=== PATIENT | female | born 1950 | race Caucasian/White ===

== ENCOUNTER → 2018-05-14 | Outpatient (CLI) | payer MEDICARE | END | disposition home or self-care (01) | LOC: CFH 10:58 | PROVIDERS: ATTEND Obstetrics & Gynecology | DX: Z12.31 Encounter for screening mammogram for malignant neoplasm of breast (principal) | CPT/HCPCS: 77067 ==

== ENCOUNTER → 2019-02-17 | Outpatient (CLI) | payer MEDICARE | END | disposition home or self-care (01) | LOC: CFH 09:30 | PROVIDERS: ATTEND Family Medicine | DX: Z13.820 Encounter for screening for osteoporosis (principal); Z78.0 Asymptomatic menopausal state | CPT/HCPCS: 77080 ==

== ENCOUNTER → 2019-03-12 | Outpatient (CLI) | payer MEDICARE | END | disposition home or self-care (01) | LOC: CVU 15:21 | PROVIDERS: ATTEND Internal Medicine Cardiovascular Disease | DX: I08.3 Combined rheumatic disorders of mitral, aortic and tricuspid valves (principal); I48.91 Unspecified atrial fibrillation; I10 Essential (primary) hypertension | CPT/HCPCS: 93306 ==

== ENCOUNTER → 2019-03-19 | Outpatient (CLI) | payer MEDICARE ==
[~2019-03-19] MED LIST: REGADENOSON 0.4 MG/5 ML SYRINGE ONE
== END | disposition home or self-care (01) ==
LOC: CFH 12:09
PROVIDERS: ATTEND Internal Medicine Cardiovascular Disease
DX: R00.0 Tachycardia, unspecified (principal); I48.91 Unspecified atrial fibrillation
CPT/HCPCS: 78452; 93017; A9502; J2785

== ENCOUNTER 2019-04-07 09:34 | Day surgery (SDC) | payer MEDICARE ==
[~2019-04-07] VITALS: Ht 167.6 cm; Wt 82.0 kg
[2019-04-07 11:24] LABS: ANION GAP 6 mmol/L (5-15); CALCIUM 9.1 mg/dL (8.5-10.1); CHLORIDE 111 mmol/L (98-107); CREATININE 0.74 mg/dL (0.55-1.02)
[2019-04-07] MEDS ORDERED: PROPOFOL 10 MG/ML, 20ML ONE (12:11)
[2019-04-07] MEDS ORDERED: calcium PO (12:26)
[2019-04-07] MEDS ORDERED: ATOR20TA37 PO (12:26)
[2019-04-07] MEDS ORDERED: MULT-658 PO (12:31)
[2019-04-07] MEDS ORDERED: APIX5TAB PO (12:31)
[2019-04-07] MEDS ORDERED: NAPH15DR OP (12:31)
[2019-04-07] MEDS ORDERED: LYSI100010 PO (12:31)
[2019-04-07] MEDS ORDERED: UBID100C24 PO (12:31)
[2019-04-07] MEDS ORDERED: GLUC-104 PO (12:31)
[2019-04-07] MEDS ORDERED: CHOL100012 PO (12:31)
[2019-04-07] MEDS ORDERED: METO-93 PO (12:31)
[2019-04-07] MEDS ORDERED: DIGO125T PO (12:31)
== END 2019-04-07 13:45 | disposition home or self-care (01) ==
LOC: CACL 09:34
PROVIDERS: ATTEND Internal Medicine Cardiovascular Disease
DX: I48.91 Unspecified atrial fibrillation (principal); I10 Essential (primary) hypertension; E78.5 Hyperlipidemia, unspecified; K21.9 Gastro-esophageal reflux disease without esophagitis; Z88.0 Allergy status to penicillin
CPT/HCPCS: 36415; 80048; 80162; 92960; 93005; J2704

== ENCOUNTER → 2020-11-24 | Outpatient (CLI) | payer MEDICARE ==
[~2020-11-24] MED LIST changes: +APIX5TAB PO; +ATOR20TA37 PO; +CHOL100012 PO; +DIGO125T85 PO; +GLUC-104 PO; +LYSI100010 PO; +METO-93 PO; +MULT-658 PO; +NAPH15DR OP; +UBID100C24 PO; +calcium PO
== END | disposition home or self-care (01) ==
LOC: CFH 07:30
PROVIDERS: ATTEND Internal Medicine Cardiovascular Disease
DX: I08.8 Other rheumatic multiple valve diseases (principal); I21.19 ST elevation (STEMI) myocardial infarction involving other coronary artery of inferior wall; I25.89 Other forms of chronic ischemic heart disease; I11.9 Hypertensive heart disease without heart failure; I48.20 Chronic atrial fibrillation, unspecified
CPT/HCPCS: 78452; 93017; 93306; A9502; J2785